=== PATIENT | male | born 1990 ===

== ENCOUNTER 2019-03-03 11:40 | Emergency (ER) | payer OTHER ==
[2019-03-03 12:02] VITALS: RESP 18; TEMP 98.4
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
--- NOTE | 2019-03-03 13:23 | CT ---
Date of service: 03/03/2019 PROCEDURE: CT HEAD WITHOUT CONTRAST. HISTORY: headache COMPARISON: None available. TECHNIQUE: Axial computed tomography images were obtained through the head/brain without intravenous contrast. Radiation dose: Total exam DLP = 864.19 mGy-cm. This CT exam was performed using one or more of the following dose reduction techniques: Automated exposure control, adjustment of the mA and/or kV according to patient size, and/or use of iterative reconstruction technique. FINDINGS: HEMORRHAGE: No intracranial hemorrhage. BRAIN: No mass effect or edema. No atrophy or chronic microvascular ischemic changes. VENTRICLES: Unremarkable. No hydrocephalus. CALVARIUM: Unremarkable. PARANASAL SINUSES: Unremarkable as visualized. No significant inflammatory changes. MASTOID AIR CELLS: Unremarkable as visualized. No inflammatory changes. OTHER FINDINGS: None. IMPRESSION: No acute findings
[2019-03-03 13:47] VITALS: BP 133/80; PULSE 78; O2SAT 98
== END 2019-03-03 13:47 | disposition home or self-care (01) ==
LOC: ED 11:40
DX: F07.81 Postconcussional syndrome (principal); Y93.55 Activity, bike riding